=== PATIENT | male | born 1975 | race Caucasian/White ===

== ENCOUNTER 2018-11-12 15:36 | Emergency (ER) | payer SELFPAY ==
[~2018-11-12 15:36] MED LIST: AMIL5TAB11 PO; AMLO-113 PO; CEPH500T7 PO; CLIN300C99 PO; METO50TA19 PO; OMEP1CAP15 PO
--- NOTE | 2018-11-12 15:48 | ER Report ---
History and Physical Time Seen By MD: 15:48 HPI/ROS CHIEF COMPLAINT: Stuttering, leg pain, shaking. HISTORY OF PRESENT ILLNESS: 42-year-old male patient presents to emergency room with complaint of stuttering, leg pain and shaking. Patient states that the stuttering leg pain are intermittent. He states they're not all the time. He denies having any weakness to his extremities. Patient states he is not taking any medication for this. Patient states that he does drink, however he only drinks a couple of drinks a night. He states that he has had these symptoms intermittently for the past year. He's been seen numerous times in the emergency room for them. He states that every time they have discharged him home, with diagnosis of vertigo. He states that has been in [place] where he was seen and he came over to [place] today to get a second opinion. REVIEW OF SYSTEMS: Respiratory: No cough, no dyspnea. Cardiovascular: No chest pain, no palpitations. Gastrointestinal: No vomiting, no abdominal pain. Musculoskeletal: No back pain. Allergies: Coded Allergies: Penicillins (Unverified Allergy, Severe, THROAT SWELLING, 09/25/16) acetaminophen (Verified Allergy, Severe, high blood pressure/eyes swell shut/gets violent, 09/25/16) amoxicillin (Verified Allergy, Severe, THROAT SWELLING, 09/25/16) oxycodone (Verified Allergy, Severe, high blood pressure/eyes swell shut/gets violent, 09/25/16) procaine (Unverified Allergy, Severe, THROAT SWELLING, 09/25/16) Home Meds Active Scripts Ondansetron Hcl (ZOFRAN) 4 Mg Tablet, 4 MG PO Q6H PRN for NAUSEA/VOMITING, #20 TAB Prov:[facility] 11/12/18 Reported Medications Meclizine Hcl (MECLIZINE HCL) 25 Mg Tablet, 25 MG PO BID 11/12/18 Amiloride Hcl (AMILORIDE HCL) 5 Mg Tablet, 10 MG PO QDAY 09/25/16 Amlodipine Besylate (AMLODIPINE BESYLATE) 10 Mg Tablet, 1 TAB PO QDAY, TAB 09/25/16 Metoprolol Succinate (METOPROLOL SUCCINATE) 50 Mg Tab.er.24h, 1 TAB PO QDAY, TAB 09/25/16 Omeprazole/Sodium Bicarbonate (ZEGERID OTC 20-1,100 MG CAP) 1 Each Capsule, 1 EACH PO, CAPSULE 10/16/13 Discontinued Scripts Cephalexin 500 Mg Tab (KEFLEX 500 MG TAB) 500 Mg Tablet, 500 MG PO TID, #21 TAB Prov:[facility] [employer] [employer] 09/25/16 Past Medical/Surgical History Patient states that he has a past medical history of seizures, secondary to low potassium, reflux, alcohol use. Patient has a surgical history of a sebaceous cyst lanced. Patient has a family medical history of cancer, CAD, diabetes. Reviewed Nurses Notes: Yes Hx Smoking: Yes Exposure to Second Hand Smoke?: Yes Hx Substance Use Disorder: No Hx Alcohol Use: No Constitutional Vital Sign - Last 24 Hours 11/12/18 11/12/18 11/12/18 11/12/18 15:49 15:51 16:00 16:06 Temp 98.7 Pulse 103 98 Resp 18 B/P (MAP) 156/109 (125) 156/109 145/102 (116) Pulse Ox 93 93 O2 Delivery Room Air 11/12/18 11/12/18 11/12/18 11/12/18 16:32 16:36 17:00 17:06 Pulse 101 99 B/P (MAP) 143/100 (114) 142/106 (118) Pulse Ox 91 89 11/12/18 11/12/18 11/12/18 17:11 17:30 17:41 Pulse 104 109 B/P (MAP) 138/99 (112) Pulse Ox 92 95 Physical Exam General Appearance: The patient is alert, has no immediate need for airway protection and no current signs of toxicity. Eyes: Pupils equal and round no injection. Extraocular movements intact, nystagmus when looking to the left. Respiratory: Chest is non tender, lungs are clear to auscultation. Cardiac: regular rate and rhythm Gastrointestinal: Abdomen is soft and non tender, no masses, bowel sounds normal. Musculoskeletal: Neck: Neck is supple and non tender. Extremities have full range of motion and are non tender. Skin: No rashes or lesions. Neuro: Patient is alert and oriented 4, cranial nerves II through XII grossly intact. DIFFERENTIAL DIAGNOSIS: After history and physical exam differential diagnosis was considered for seizure, stroke, alcohol abuse. Medical Decision Making Data Points Result Diagram: 11/12/18 1625 11/12/18 1625 Laboratory Hematology Test 11/12/18 00:00 11/12/18 16:25 Urine Color Yellow Urine Clarity Clear Urine pH 5.0 pH (4.8-9.5) Urine Specific [place] 1.017 Urine Protein Negative mg/dL (NEGATIVE) Urine Glucose (UA) Negative mg/dL (NEGATIVE) Urine Ketones Negative mg/dL (NEGATIVE) Urine Blood Negative (NEGATIVE) Urine Nitrite Negative (NEGATIVE) Urine Bilirubin Negative (NEGATIVE) Urine Urobilinogen 2.0 mg/dL (0.2-1.9) Urine Leukocyte Esterase Negative (NEGATIVE) Urine RBC None /HPF (0-2/HPF) Urine WBC 1 /HPF (0-5/HPF) Urine Squamous Epithelial Cells Few /LPF (</=FEW) Urine Bacteria Negative /HPF (NONE-FEW) Urine Mucus None /HPF (NONE-FEW) Red Blood Count 5.13 M/uL (4.00-5.60) Mean Corpuscular Volume 102.3 fL (80.0-96.0) Mean Corpuscular Hemoglobin 35.0 pg (26.0-33.0) Mean Corpuscular Hemoglobin Concent 34.2 g/dL (32.0-36.0) Red Cell Distribution Width 14.8 % (11.5-14.5) Mean Platelet Volume 7.9 fL (7.2-11.1) Neutrophils (%) (Auto) 45.2 % (39.4-72.5) Lymphocytes (%) (Auto) 45.8 % (17.6-49.6) Monocytes (%) (Auto) 6.6 % (4.1-12.4) Eosinophils (%) (Auto) 1.8 % (0.4-6.7) Basophils (%) (Auto) 0.6 % (0.3-1.4) Nucleated RBC Relative Count (auto) 0.1 /100WBC Neutrophils # (Auto) 2.9 K/uL (2.0-7.4) Lymphocytes # (Auto) 2.9 K/uL (1.3-3.6) Monocytes # (Auto) 0.4 K/uL (0.3-1.0) Eosinophils # (Auto) 0.1 K/uL (0.0-0.5) Basophils # (Auto) 0.0 K/uL (0.0-0.1) Nucleated RBC Absolute Count (auto) 0.01 K/uL Peripheral Blood Smear Y/N Sodium Level 137 mmol/L (137-145) Potassium Level 3.8 mmol/L (3.5-5.0) Chloride Level 107 mmol/L (98-107) Carbon Dioxide Level 20 mmol/L (22-30) Blood Urea Nitrogen 12 mg/dl (9-21) Creatinine 0.80 mg/dl (0.66-1.25) Glomerular Filtration Rate Calc > 60.0 Random Glucose 93 mg/dl (75-110) Calcium Level 7.7 mg/dl (8.4-10.2) Total Bilirubin 1.4 mg/dl (0.2-1.3) Aspartate Amino Transf (AST/SGOT) 216 U/L (0-35) Alanine Aminotransferase (ALT/SGPT) 179 U/L (0-56) Alkaline Phosphatase 118 U/L (0-126) Troponin I < 0.012 ng/ml Total Protein 6.3 g/dl (6.3-8.2) Albumin 3.2 g/dl (3.5-5.0) Serum Alcohol 287 mg/dl Chemistry Test 11/12/18 00:00 11/12/18 16:25 Urine Color Yellow Urine Clarity Clear Urine pH 5.0 pH (4.8-9.5) Urine Specific [place] 1.017 Urine Protein Negative mg/dL (NEGATIVE) Urine Glucose (UA) Negative mg/dL (NEGATIVE) Urine Ketones Negative mg/dL (NEGATIVE) Urine Blood Negative (NEGATIVE) Urine Nitrite Negative (NEGATIVE) Urine Bilirubin Negative (NEGATIVE) Urine Urobilinogen 2.0 mg/dL (0.2-1.9) Urine Leukocyte Esterase Negative (NEGATIVE) Urine RBC None /HPF (0-2/HPF) Urine WBC 1 /HPF (0-5/HPF) Urine Squamous Epithelial Cells Few /LPF (</=FEW) Urine Bacteria Negative /HPF (NONE-FEW) Urine Mucus None /HPF (NONE-FEW) White Blood Count 6.4 k/uL (4.5-11.0) Red Blood Count 5.13 M/uL (4.00-5.60) Hemoglobin 17.9 g/dL (14.0-18.0) Hematocrit 52.4 % (42.0-52.0) Mean Corpuscular Volume 102.3 fL (80.0-96.0) Mean Corpuscular Hemoglobin 35.0 pg (26.0-33.0) Mean Corpuscular Hemoglobin Concent 34.2 g/dL (32.0-36.0) Red Cell Distribution Width 14.8 % (11.5-14.5) Platelet Count 179 K/uL (150-450) Mean Platelet Volume 7.9 fL (7.2-11.1) Neutrophils (%) (Auto) 45.2 % (39.4-72.5) Lymphocytes (%) (Auto) 45.8 % (17.6-49.6) Monocytes (%) (Auto) 6.6 % (4.1-12.4) Eosinophils (%) (Auto) 1.8 % (0.4-6.7) Basophils (%) (Auto) 0.6 % (0.3-1.4) Nucleated RBC Relative Count (auto) 0.1 /100WBC Neutrophils # (Auto) 2.9 K/uL (2.0-7.4) Lymphocytes # (Auto) 2.9 K/uL (1.3-3.6) Monocytes # (Auto) 0.4 K/uL (0.3-1.0) Eosinophils # (Auto) 0.1 K/uL (0.0-0.5) Basophils # (Auto) 0.0 K/uL (0.0-0.1) Nucleated RBC Absolute Count (auto) 0.01 K/uL Peripheral Blood Smear Y/N Glomerular Filtration Rate Calc > 60.0 Calcium Level 7.7 mg/dl (8.4-10.2) Total Bilirubin 1.4 mg/dl (0.2-1.3) Aspartate Amino Transf (AST/SGOT) 216 U/L (0-35) Alanine Aminotransferase (ALT/SGPT) 179 U/L (0-56) Alkaline Phosphatase 118 U/L (0-126) Troponin I < 0.012 ng/ml Total Protein 6.3 g/dl (6.3-8.2) Albumin 3.2 g/dl (3.5-5.0) Serum Alcohol 287 mg/dl Toxicology Test 11/12/18 16:25 Serum Alcohol 287 mg/dl Urinalysis Test 11/12/18 00:00 Urine Color Yellow Urine Clarity Clear Urine pH 5.0 pH (4.8-9.5) Urine Specific [place] 1.017 Urine Protein Negative mg/dL (NEGATIVE) Urine Glucose (UA) Negative mg/dL (NEGATIVE) Urine Ketones Negative mg/dL (NEGATIVE) Urine Blood Negative (NEGATIVE) Urine Nitrite Negative (NEGATIVE) Urine Bilirubin Negative (NEGATIVE) Urine Urobilinogen 2.0 mg/dL (0.2-1.9) Urine Leukocyte Esterase Negative (NEGATIVE) Urine RBC None /HPF (0-2/HPF) Urine WBC 1 /HPF (0-5/HPF) Urine Squamous Epithelial Cells Few /LPF (</=FEW) Urine Bacteria Negative /HPF (NONE-FEW) Urine Mucus None /HPF (NONE-FEW) EKG/Imaging Imaging Examination: CHEST PA AND LAT Comparison: None. History: Dizziness. Stuttering. Findings: No consolidation, nodule, or peribronchial inflammation. No pneumothorax, edema, or effusion. Cardiac and hilar contour size is normal. Osseous structures are intact. IMPRESSION: Negative chest. Report Dictated By: Denis Bella MD at 11/12/2018 5:02 PM Report E-Signed By: Denis Bella MD at 11/12/2018 5:04 PM EXAMINATION: CT HEAD WITHOUT CONTRAST COMPARISON: None available HISTORY: Dizziness and stuttering. PROCEDURE: Noncontrast CT from the vertex through the skull base. One of the following dose optimization techniques was utilized in the performance of this exam: Automated exposure control; adjustment of the mA and/or kV according to the patient's size; or use of an iterative reconstruction technique. Specific details can be referenced in the facility's radiology CT exam operational policy. FINDINGS: Brain volume: Age-appropriate. Hemorrhage/extra-axial fluid: None. Mass effect/midline shift/edema: None. Ischemia: Mathis-white differentiation is preserved. Ventricles and basal cisterns: Within normal limits. Posterior fossa: Negative. Vessels: Negative. Calvarium, skull base, and scalp: Negative. Visualized sinuses and orbits: Within normal limits. IMPRESSION: Negative noncontrast head CT. Report Dictated By: Denis Bella MD at 11/12/2018 5:04 PM Report E-Signed By: Denis Bella MD at 11/12/2018 5:11 PM ED Course/Re-evaluation ED Course Patient was admitted to exam room, history and physical were obtained. Differential diagnoses were considered. On examination lungs are clear, heart is regular, abdomen is soft and nontender. Neurologically patient is intact. A CT scan of the head, chest x-ray, EKG, CBC, CMP, urinalysis and alcohol level were obtained. Labs were unremarkable, patient did have an MCV of 102, AST was elevated 216, troponin was negative, EKG showed a normal sinus rhythm, blood alcohol was 287. I believe the patient's symptoms are likely secondary to his alcohol abuse. I did discuss this with the patient and his son. When discussing this with the patient as some patient's son did become irritated and inform me that the patient does drink approximately a half-gallon of alcohol a day. I did offer admission for alcohol detox which was refused. Patient stated that he had to work was not able to take time off of work. He asked if there was anything they can be done to help him detox at home. I discussed with him that something should be done by a primary care provider so he can monitored more closely. I did offer him some medication for nausea which he accepted. We'll go ahead and discharge patient home at this time. Decision to Disposition Date: Nov 12, 2018 Decision to Disposition Time: 17:24 Depart Departure Latest Vital Signs Vital Signs Date Time Temp Pulse Resp B/P (MAP) Pulse Ox O2 Delivery O2 Flow Rate FiO2 11/12/18 17:41 109 95 11/12/18 17:30 138/99 (112) 11/12/18 15:51 98.7 18 Room Air Impression: Primary Impression: Alcohol intoxication Condition: Improved Disposition: HOME OR SELF-CARE New Scripts Ondansetron Hcl (ZOFRAN) 4 Mg Tablet 4 MG PO Q6H PRN for NAUSEA/VOMITING, #20 TAB Prov: CATIE MAGAÑA 11/12/18 Patient Instructions: Alcohol Intoxication (ED) Additional Instructions: Increase fluid intake. Decrease alcohol use. Please do not try to quit all at one time. Follow up with your primary care provider to discuss out patient detox. Continue with your normal medications. Return to the ER if condition worsens, or you choose to try inpatient detox. Problem Qualifiers Primary Impression: Alcohol intoxication Complication of substance-induced condition: uncomplicated Qualified Codes: F10.920 - Alcohol use, unspecified with intoxication, uncomplicated CATIE MAGAÑA Nov 12, 2018 15:48
[2018-11-12] MEDS ORDERED: MECL25TA9 PO (15:57)
[2018-11-12] MEDS ORDERED: NS(*) 0.9% 1000 ML BAG 1,000 ML IV ONE (15:58)
--- NOTE | 2018-11-12 16:15 | EKG ---
FACILITY: [facility] PATIENT NAME: CLAY YAÑEZ : [id number] MR: [id number] V: [id number] EXAM DATE: ORDERING PHYSICIAN: CATIE MAGAÑA TECHNOLOGIST: Test Reason : DIZZINESS, STUTTERING Blood Pressure : / mmHG Vent. Rate : 096 BPM Atrial Rate : 096 BPM P-R Int : 168 ms QRS Dur : 088 ms QT Int : 362 ms P-R-T Axes : 043 -12 033 degrees QTc Int : 457 ms Normal sinus rhythm Septal infarct , age undetermined Inferior infarct (cited on or before 15-MAR-2016) Abnormal ECG When compared with ECG of 15-MAR-2016 09:55, Septal infarct is now present Questionable change in initial forces of Inferior leads T wave inversion no longer evident in Anterior leads QT has shortened Confirmed by LYNNE WASHINGTON ([id number]) on 11/13/2018 6:45:14 AM Referred By: Confirmed By:LYNNE WASHINGTON
[2018-11-12 16:40] LABS: PLATELET COUNT, AUTOMATED 179 K/uL (150-450)
--- NOTE | 2018-11-12 17:08 | RADIOLOGY IMAGING REPORT ---
FACILITY: [facility] PATIENT NAME: Alok Cervantes : 1975 MR: [id number] V: [id number] EXAM DATE: ORDERING PHYSICIAN: CATIE MAGAÑA TECHNOLOGIST: Location: [facility] Patient: Alok Cervantes : 1975 Visit/Account:[id number] Date of Sevice: 11/12/2018 Examination: CHEST PA AND LAT Comparison: None. History: Dizziness. Stuttering. Findings: No consolidation, nodule, or peribronchial inflammation. No pneumothorax, edema, or effusi on. Cardiac and hilar contour size is normal. Osseous structures are intact. IMPRESSION: Negative chest. Report Dictated By: Denis Bella MD at 11/12/2018 5:02 PM Report E-Signed By: Denis Bella MD at 11/12/2018 5:04 PM WSN:[email or web address]
--- NOTE | 2018-11-12 17:14 | RADIOLOGY IMAGING REPORT ---
FACILITY: [facility] PATIENT NAME: Alok Cervantes : 1975 MR: [id number] V: [id number] EXAM DATE: ORDERING PHYSICIAN: CATIE MAGAÑA TECHNOLOGIST: Location: [facility] Patient: Alok Cervantes : 1975 Visit/Account:[id number] Date of Sevice: 11/12/2018 EXAMINATION: CT HEAD WITHOUT CONTRAST COMPARISON: None available HISTORY: Dizziness and stuttering. PROCEDURE: Noncontrast CT from the vertex through the skull base. One of the following dose optimizat ion techniques was utilized in the performance of this exam: Automated exposure control; adjustment o f the mA and/or kV according to the patient's size; or use of an iterative reconstruction technique. Specific details can be referenced in the facility's radiology CT exam operational policy. FINDINGS: Brain volume: Age-appropriate. Hemorrhage/extra-axial fluid: None. Mass effect/midline shift/edema: None. Ischemia: Mathis-white differentiation is preserved. Ventricles and basal cisterns: Within normal limits. Posterior fossa: Negative. Vessels: Negative. Calvarium, skull base, and scalp: Negative. Visualized sinuses and orbits: Within normal limits. IMPRESSION: Negative noncontrast head CT. Report Dictated By: Denis Bella MD at 11/12/2018 5:04 PM Report E-Signed By: Denis Bella MD at 11/12/2018 5:11 PM WSN:[email or web address]
[2018-11-12] MEDS ORDERED: ONDA4TAB97 PO (17:27)
[2018-11-12 17:30] VITALS: BP 138/99
[2018-11-12] MEDS ORDERED: ONDANSETRON 4 MG ODT TH SL ONE (17:30)
== END 2018-11-12 17:50 | disposition home or self-care (01) ==
LOC: ER 15:58
DX: F10.920 Alcohol use, unspecified with intoxication, uncomplicated (principal); Y90.8 Blood alcohol level of 240 mg/100 ml or more
CPT/HCPCS: 70450; 71046; 80320; 81001; 84484; 85025; 93005; 96360; 99284; J7030; S0119; 82040; 82247; 82310; 82374; 82435; 82565; 82947; 84075; 84132; 84155; 84295; 84450; 84460; 84520